=== PATIENT | male | born 2000 | race African-American/Black ===

== ENCOUNTER 2023-10-31 00:48 | Emergency (ER) | payer SELFPAY ==
--- NOTE | ~2023-10-31 | XR_ITS ---
EXAMINATION: XR chest 1V portable DATE: 10/31/2023 01:28 INDICATION: Chest tightness and shortness of breath TECHNIQUE: AP view of the chest was obtained. COMPARISON: None FINDINGS: The lungs are clear with no focal airspace opacities, pulmonary edema, pleural effusion or pneumothor ax. The cardiomediastinal silhouette is normal. Visualized bones and soft tissues are unremarkable. IMPRESSION: 1. Normal chest radiograph. Reviewed, dictated and finalized at location A. IMPRESSION: 1. Normal chest radiograph.
[2023-10-31 00:52] VITALS: BP 153/90; PULSE 58; RESP 14; TEMP 37.2; O2SAT 100
--- NOTE | 2023-10-31 00:53 | ECG_ITS ---
Test Date: 2023-10-31 00:57:07 Measurements Intervals Lyman Rate: 51 P: 55 MT: 158 QRS: 90 QRSD: 101 T: 58 QT: 400 QTc: 369 Interpretive Statements SINUS BRADYCARDIA WITH SINUS ARRHYTHMIA BORDERLINE ECG No previous ECG available for comparison Electronically Signed On 10-31-2023 07:14:04 CDT by Guido Marie D.O.
[2023-10-31 01:27] LABS: Basophils Absolute Auto 0.1 K/mm3 (0.0-0.1); Basophils Percent Auto 0.7 % (0.2-1.2); Eosinophils Absolute Auto 0.1 K/mm3 (0-0.3); Eosinophils Percent Auto 1.2 % (0-4.4); Hematocrit 45.4 % (42.0-52.0); Hemoglobin 15.2 g/dL (14.0-18.0); Immature Granulocyte Absolute 0.01 K/mm3 (0.00-0.031); Immature Granulocyte Percent A 0.1 % (0-0.5); Lymphocytes Percent Auto 49.7 % (18.3-44.2); Mean Corpuscular HGB Conc 33.5 g/dl (32-36); Mean Corpuscular Hemoglobin 30.2 pg (26-34); Mean Corpuscular Volume 90.3 fl (80-100); Mean Platelet Volume 9.7 fl (7.4-10.4); Monocytes Absolute Auto 0.3 K/mm3 (0.1-0.6); Neutrophils Absolute Auto 3.3 K/mm3 (1.3-6.7); Neutrophils Percent Auto 44.3 % (45.5-73.1); Platelet Count Result 221 k/mm3 (150-375); Red Blood Count 5.03 M/mm3 (4.6-6.20); Red Cell Distribution Width 11.9 % (11.5-14.5); White Blood Count 7.5 K/mm3 (4.5-10.0)
[2023-10-31 01:36] LABS: Prothrombin Time 13.8 Seconds (11.1-14.7)
[2023-10-31 01:37] LABS: Alanine Aminotransferase 17 U/L (6-50); Albumin Level 4.8 g/dL (3.5-5.1); Alkaline Phosphatase 81 U/L (38-126); Anion Gap 10 mmol/L (4-12); Aspartate Amino Transferase 23 U/L (17-59); Bilirubin,Total 0.7 mg/dL (0.2-1.3); Blood Urea Nitrogen 18 mg/dL (9-20); Calcium 9.6 mg/dL (8.4-10.2); Carbon Dioxide 25 mmol/L (22-30); Chloride 101 mmol/L (98-107); Estimated CRCL calculation 108 ml/min; Estimated Glomerular Filt Rate > 60; Glucose 91 mg/dL (65-110); Lipase 96 U/L (23-300); Partial Thromboplastin Time 28.3 Seconds (22.3-36.8); Potassium 3.4 mmol/L (3.4-5.0); Sodium 136 mmol/L (137-145)
[2023-10-31 01:41] VITALS: O2SAT 100
[2023-10-31 01:48] LABS: Troponin I < 0.012 ng/mL (0.000-0.034)
--- NOTE | 2023-10-31 02:06 | ED.GENADULT ---
HPI - General Adult General Chief complaint: Shortness of Breath/Dyspnea Stated complaint: chest tightness and not able to breathe deep Time Seen by Provider: 10/31/23 01:40 History of Present Illness HPI narrative: This is a 23-year-old male presenting ED with chief complaint of chest pain and difficulty breathing. 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 When he is in there for prolonged down time he developed chest pain and shortness of breath. He does not have wheezing. He has no history of asthma. No fevers chills or productive cough Related Data Allergies Allergy/AdvReac Type Severity Reaction Status Date / Time No Known Allergies Allergy Verified 10/31/23 02:13 Exam Narrative: APPEARANCE: No apparent distress. Head: atraumatic. EYES: EOMI, NOSE: Atraumatic NECK: Trachea midline RESPIRATORY: No increased rate of breathing, clear to auscultation CARDIOVASCULAR: RRR, no peripheral edema, no reproducible chest tenderness ABDOMINAL: Non-distended soft nontender MUSCULOSKELETAl: No obvious deformities NEURO: Alert. Moving 4/4 extremities SKIN:: Warm, dry. Normal color PSYCHIATRIC: Normal affect Course Vital Signs Vital signs: Vital Signs Temperature 98.9 F 10/31/23 00:52 Pulse Rate 58 L 10/31/23 00:52 Respiratory Rate 14 10/31/23 00:52 Blood Pressure 153/90 H 10/31/23 00:52 Pulse Oximetry 100 10/31/23 00:52 Oxygen Delivery Room Air 10/31/23 00:52 Temperature 98.9 F 10/31/23 00:52 Pulse Rate 65 10/31/23 02:36 Respiratory Rate 16 10/31/23 02:36 Blood Pressure 153/90 H 10/31/23 00:52 Pulse Oximetry 100 10/31/23 01:41 Oxygen Delivery Room Air 10/31/23 01:41 Medical Decision Making [facility] Narrative Medical decision making narrative: -Course: 23-year-old male presenting with chest pain and tightness after fume exposure at work. Patient given breathing treatments steroids and pain control. On re-evaluation patient's says his pain is resolved. He thinks the nebulizer treatment health. Patient will be discharged on albuterol inhaler. 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 Carbon monoxide negative. Chest x-ray negative. Independent EKG interpretation: Rhythm [sinus], Rate [51], [place] -[normal], [place] -[normal], QRS [narrow], QTC [normal], T waves -[negative for concerning inversions], ST Segments - [Negative for concerning elevations] Final interpretations: Sinus Dominguez -Interventions: Toradol Tylenol dexamethasone and breathing treatment -Shared decision making / Disposition: Discharge Vital Signs Vital Signs: Vital Signs Temperature 98.9 F 10/31/23 00:52 Pulse Rate 58 L 10/31/23 00:52 Respiratory Rate 14 10/31/23 00:52 Blood Pressure 153/90 H 10/31/23 00:52 Pulse Oximetry 100 10/31/23 00:52 Oxygen Delivery Room Air 10/31/23 00:52 Temperature 98.9 F 10/31/23 00:52 Pulse Rate 65 10/31/23 02:36 Respiratory Rate 16 10/31/23 02:36 Blood Pressure 153/90 H 10/31/23 00:52 Pulse Oximetry 100 10/31/23 01:41 Oxygen Delivery Room Air 10/31/23 01:41 Lab Data 10/31/23 01:21 10/31/23 01:21 Labs: Lab Results 10/31/23 Range/Units 01:21 WBC 7.5 (4.5-10.0) K/mm3 RBC 5.03 (4.6-6.20) M/mm3 Hgb 15.2 (14.0-18.0) g/dL Hct 45.4 (42.0-52.0) % MCV 90.3 (80-100) fl MCH 30.2 (26-34) pg MCHC 33.5 (32-36) g/dl RDW 11.9 (11.5-14.5) % Plt Count 221 (150-375) k/mm3 MPV 9.7 (7.4-10.4) fl Immature Gran % (Auto) 0.1 (0-0.5) % Neut % (Auto) 44.3 L (45.5-73.1) %
[2023-10-31] MEDS: ACETAMINOPHEN 500 MG TABLET 1000 MG PO (02:14)
[2023-10-31] MEDS: dexAMETHasone SOD PHOS INJ 10 MG/ML 1 ML VIAL IV PUSH (02:14)
[2023-10-31] MEDS: KETOROLAC 15 MG/ML VIAL (*BKC) IV PUSH (02:14)
[2023-10-31] MEDS: IPRATROPIUM 0.5 MG/ALBUTEROL SULFATE 2.5 MG AMPUL.NEB 3 ML 6 ML INHALATION (02:19)
[2023-10-31 02:20] VITALS: PULSE 47; RESP 16
[2023-10-31 02:36] VITALS: PULSE 65; RESP 16
== END 2023-10-31 03:30 | disposition home or self-care (01) ==
PROVIDERS: Emergency Provider Emergency Medicine
DX: T59.91XA Toxic effect of unspecified gases, fumes and vapors, accidental (unintentional), initial encounter (principal); J68.0 Bronchitis and pneumonitis due to chemicals, gases, fumes and vapors
CPT/HCPCS: 36415; 71045; 80053; 83690; 84484; 85025; 85610; 85730; 93005; 94640; 96374; 96375; 99284; A9270; J1100; J1885